=== PATIENT | male | born 1945 | race Caucasian/White ===

== ENCOUNTER 2024-07-13 13:35 | Emergency (ER) | payer OTHER ==
[~2024-07-13] VITALS: Ht 188 cm; Wt 86.4 kg
[2024-07-13] MEDS: LidoCAINE 2% Topical Jelly 11mL syringe (UROJET) TOP ONE (17:13)
[2024-07-13 17:24] LABS: BILIRUBIN,URINE NEGATIVE (Neg); CLARITY,URINE CLOUDY (Clear); COLOR,URINE YELLOW (Yellow); GLUCOSE, URINE >=1000 mg/dl (Neg); KETONES,URINE NEGATIVE (Neg); LEUKOCYTE ESTERASE ,URINE MODERATE (Neg); NITRITES, URINE POSITIVE (Neg); OCCULT BLOOD,URINE MODERATE (Neg); PROTEIN,URINE TRACE mg/dl (Neg); UROBILINOGEN,URINE 0.2 E.U/dL (0.2-1.0)
[2024-07-13 17:31] LABS: UA COLLECTION TYPE FOLEY CATH
[2024-07-13 17:35] LABS: BACTERIA,URINE 4+ /HPF (Neg); MUCUS STRANDS NONE SEEN /LPF (Neg); RENAL CELLS, URINE FEW /HPF; SQUAMOUS EPITHELIAL CELL,UR FEW /LPF (FEW); WBC CLUMPS,URINE MANY /HPF (NEGATIVE); WBC,URINE TNTC /HPF (0-4)
[2024-07-13] MEDS ORDERED: sulfamethoxazole/trimethoprim SS (400mg/80mg) tab (single-strength) PO SCH (17:50)
[2024-07-13] MEDS ORDERED: SULF1TAB48 PO (18:01)
[2024-07-13] MEDS: sulfamethoxazole/trimethoprim DS (800/160mg) tablet PO ONE (18:21)
[2024-07-13 18:28] VITALS: BP 113/65; PULSE 84; RESP 16; TEMP 98.2; O2SAT 99
[2024-07-13] MEDS: sulfamethoxazole/trimethoprim SS (400mg/80mg) tab (single-strength) PO ONE (18:28)
== END 2024-07-13 18:30 | disposition home or self-care (01) ==
LOC: ER 13:36
DX: N39.0 Urinary tract infection, site not specified (principal); N13.9 Obstructive and reflux uropathy, unspecified; Z88.8 Allergy status to other drugs, medicaments and biological substances
CPT/HCPCS: 51702; 81001; 87077; 87088; 87186; 99284; A4314

== ENCOUNTER 2024-08-30 06:47 | Inpatient (IN) | payer OTHER ==
[2024-08-23 16:03] LABS: BASOPHILS % (AUTO) 0.1 % (0-1); EOSINOPHILS # (AUTO) 0.2 X10'3 (0-0.9); EOSINOPHILS % (AUTO) 2.3 % (0-6); LYMPHOCYTES # (AUTO) 1.4 X10'3 (1.1-4.8); LYMPHOCYTES % (AUTO) 13.3 % (21-51); MEAN CORPUSCULAR HEMOGLOBIN 28.1 PG (27.0-31.0); MEAN CORPUSCULAR HGB CONC 32.3 g/dL (33.0-36.5); MEAN CORPUSCULAR VOLUME 87.1 FL (78-98); MONOCYTES # (AUTO) 0.8 X10'3 (0-0.9); MONOCYTES % (AUTO) 7.4 % (2-12); NEUTROPHILS # (AUTO) 8.3 X10'3 (1.8-7.7); NEUTROPHILS % (AUTO) 76.9 % (42-75); PRE OP HEMATOCRIT 37.8 % (42.0-52.0); PRE OP HEMOGLOBIN 12.2 g/dL (14.0-17.9); PRE OP PLATELET COUNT 205 X10'3 (140-440); PRE OP WHITE BLOOD COUNT 10.8 10'3 (4.8-10.8); RED BLOOD COUNT 4.34 X10'6 (4.70-6.10); RED CELL DISTRIBUTION WIDTH 14.4 % (11.5-14.5)
[2024-08-23 16:18] LABS: PRE OP INR 1.2 INR; PRE OP PROTIME 12.4 SECONDS (9.0-12.0)
[2024-08-23 16:27] LABS: BILIRUBIN,URINE NEGATIVE (Neg); CLARITY,URINE CLEAR (Clear); COLOR,URINE YELLOW (Yellow); GLUCOSE, URINE >=1000 mg/dl (Neg); KETONES,URINE TRACE mg/dl (Neg); LEUKOCYTE ESTERASE ,URINE NEGATIVE (Neg); NITRITES, URINE NEGATIVE (Neg); OCCULT BLOOD,URINE NEGATIVE (Neg); PH,URINE 5.5 (4.8-8.0); PROTEIN,URINE TRACE mg/dl (Neg); UROBILINOGEN,URINE 0.2 E.U/dL (0.2-1.0)
[2024-08-23 16:31] LABS: UA COLLECTION TYPE NON-SPECIFIED
[2024-08-23 16:33] LABS: BACTERIA,URINE NONE SEEN /HPF (Neg); RBC,URINE NONE SEEN /HPF (0-2); SQUAMOUS EPITHELIAL CELL,UR NONE SEEN /LPF (FEW); WBC,URINE 0-4 /HPF (0-4)
[2024-08-23 16:37] LABS: ALBUMIN 3.1 G/DL (3.4-5.0); ALBUMIN/GLOBULIN RATIO 0.8 (1.1-1.5); ALKALINE PHOSPHATASE 123 IU/L (46-116); BLOOD UREA NITROGEN 14 MG/DL (7-18); BUN/CREATININE RATIO 13.5 (10.0-20.0); CALCIUM 9.1 MG/DL (8.5-10.1); CHLORIDE 102 MMOL/L (99-107); CREATININE 1.04 MG/DL (0.60-1.10); PRE OP ALT 22 U/L (30-65); PRE OP ANION GAP 6 (8-16); PRE OP AST 18 U/L (10-37); PRE OP BILIRUB, TOTAL 0.6 MG/DL (0.0-1.0); PRE OP GLUCOSE 107 MG/DL (70-104); PRE OP POTASSIUM 4.1 MMOL/L (3.4-5.1); PRE OP SODIUM 136 MMOL/L (135-145); TOTAL CARBON DIOXIDE 27.8 MMOL/L (24-32); TOTAL PROTEIN 7.2 G/DL (6.4-8.2); eGFR 69 ML/MIN
[2024-08-30] VITALS (37 sets, daily range): BP systolic 82–162; BP diastolic 59–91; PULSE 81–123; RESP 12–22; TEMP 97.4–98.4; O2SAT 93–100
[~2024-08-30] VITALS: Ht 188 cm; Wt 86.1 kg
[2024-08-30] MEDS: ceFAZolin 2gm in dextrose, iso 50 ML IV ONE (05:30)
[~2024-08-30 06:47] MED LIST: ALBU2.5V10; APIX5TAB3 PO; BUDE8.435 BOTHNARES; CALC600T21 PO; DIGO125T97 PO; DILT180C76 PO; EMPA25TA; EZET10TA48 PO; FINA5TAB11 PO; FLO0.4C; FURO-150 PO; HYDR-3968 PO; MECL-302 PO; METO200T37 PO; MONT-40 PO; OMEP20CA16 PO; ROSU40TA89 PO; SACU1TAB7 PO; TIOT18CA3; ondansetron/PF 4mg/2ml inj IV PRN
[2024-08-30] MEDS ORDERED: ondansetron/PF 4mg/2ml inj IV PRN ×2 (07:15→09:30)
[2024-08-30] MEDS ORDERED: morphine 2 MG/ML inj. syringe IV PRN (07:15)
[2024-08-30] MEDS ORDERED: labetalol 20mg/4ml (5mg/ml) syringe IV PRN ×2 (07:15→09:30)
[2024-08-30] MEDS ORDERED: hydrALAZINE 20mg/ml inj. IV PRN ×2 (07:15→09:30)
[2024-08-30] MEDS ORDERED: morphine 4 MG/ML inj SYRINge IV PRN (07:15)
[2024-08-30] MEDS: famotidine 20mg tablet PO ONE (07:17)
[2024-08-30] MEDS: VANCOMYCIN/H2O 1.5g/300mL PB 300 ML IV ONE (07:17)
[2024-08-30] MEDS: ringers solution, lacted 1,000 ML IV SCH ×2 (07:18→11:30)
[2024-08-30] MEDS ORDERED: LIDOcaine 1% 30ml preserv. free vial ONE (08:22)
[2024-08-30] MEDS ORDERED: iohexol 350MG/ML 100ml bottle IV ONE (08:22)
[2024-08-30] MEDS ORDERED: sevoflurane 250ml liquid IH ONE (08:25)
[2024-08-30] MEDS ORDERED: heparin 1,000unit/ml 10ml vial 10 ML ONE ×2 (08:26→08:49)
[2024-08-30] MEDS ORDERED: rocuronium 10mg/ml inj IV ONE (08:26)
[2024-08-30] MEDS ORDERED: fentaNYL/PF 50MCG/1 ML 2ML syringe ONE (08:26)
[2024-08-30] MEDS ORDERED: midazolam 1 mg/ML 2ml injection ONE (08:26)
[2024-08-30] MEDS ORDERED: propofol inj 20 ML IV ONE (08:26)
[2024-08-30] MEDS ORDERED: ePHEDrine 50MG/ML INJ. ONE (08:45)
[2024-08-30] MEDS ORDERED: sugammadex 200mg/2ml injection IV ONE (08:46)
[2024-08-30] MEDS ORDERED: non-formulary drug (Hydrocodone Bit/Acetaminophen (Hydrocodon-Acetaminoph 7.5-325) 1 TAB) PO PRN (09:15)
[2024-08-30] MEDS ORDERED: potassium Cl 40MEQ/270ML bag 250 ML IV PRN (09:30)
[2024-08-30] MEDS ORDERED: potassium Cl 40MEQ/1/2NS 520ml 520 ML IV PRN (09:30)
[2024-08-30] MEDS ORDERED: magnesium sulf-water 2g/50mL 50 ML IV PRN (09:30)
[2024-08-30] MEDS ORDERED: magnesium sulf-water 4G/100mL 100 ML IV PRN (09:30)
[2024-08-30] MEDS ORDERED: acetaminophen 325mg tablet PO PRN (09:30)
[2024-08-30] MEDS ORDERED: potassium Cl 20mEq/100mL bag 100 ML IV PRN (09:30)
[2024-08-30] MEDS ORDERED: ALPRAZolam 0.25mg tablet PO PRN (09:30)
[2024-08-30] MEDS ORDERED: pantoprazole 40mg Tablet.DR PO PRN (09:30)
[2024-08-30] MEDS ORDERED: potassium Cl 20 mEq SR tablet PO PRN (09:30)
[2024-08-30] MEDS ORDERED: diphenhydrAMINE 25mg capsule PO PRN (09:30)
[2024-08-30] MEDS ORDERED: proCHLORperazine 10 MG/2 ml inj IV PRN (09:30)
[2024-08-30] MEDS ORDERED: potassium CL 10mEq/100ml bag 100 ML IV PRN (09:30)
[2024-08-30] MEDS ORDERED: HYDROcodone/acetaminophen 5mg/325mg tablet PO PRN (09:30)
[2024-08-30] MEDS: DOCUMENT DATE & TIME OF BETA-BLOCKER PO ONE (09:45)
[2024-08-30] MEDS: normal saline 1000ml 1,000 ML IV SCH (15:29)
[2024-08-30] MEDS: metoprolol succinate 25mg (24-HOUR) SR. Tablet PO ONE (15:30)
[2024-08-30] MEDS: ceFAZolin 1GM/D5W- ADD-VANTAGE 50 ML IV SCH (15:30)
[2024-08-30] MEDS: sod chloride 0.9% 10ml flush syringe IV SCH (15:37)
[2024-08-30] MEDS ORDERED: non-formulary drug (Metoprolol Succinate 0.5 TAB) PO SCH (20:00)
[2024-08-30] MEDS: albuterol 2.5 MG/3 ML nebule NEB PRN (22:37)
[2024-08-31] MEDS: calcium carbonate 500mg tablet PO SCH (01:03)
[2024-08-31] MEDS: docusate sod 100mg capsule PO PRN (01:03)
[2024-08-31] MEDS: EMPAGLIFLOZIN 25 MG TABLET PO SCH (01:03)
[2024-08-31 02:00] VITALS: BP 144/85; PULSE 105; RESP 18; TEMP 97.6; O2SAT 96
[2024-08-31] MEDS: vancomycin inj 1,000 MG in normal saline 250ml IV soln 250 ML IV SCH (02:11)
[2024-08-31 07:00] VITALS: BP 139/89; PULSE 109; RESP 18; TEMP 97.4; O2SAT 94
[2024-08-31 07:01] LABS: BASOPHILS % (AUTO) 0.4 % (0-1); EOSINOPHILS # (AUTO) 0.2 X10'3 (0-0.9); EOSINOPHILS % (AUTO) 1.5 % (0-6); HEMATOCRIT 39.4 % (42.0-52.0); HEMOGLOBIN 13.2 g/dl (14.0-17.9); LYMPHOCYTES # (AUTO) 1.6 X10'3 (1.1-4.8); LYMPHOCYTES % (AUTO) 12.6 % (21-51); MEAN CORPUSCULAR HEMOGLOBIN 28.8 PG (27.0-31.0); MEAN CORPUSCULAR HGB CONC 33.5 g/dL (33.0-36.5); MEAN CORPUSCULAR VOLUME 85.9 FL (78-98); MEAN PLATELET VOLUME 7.4 FL (7.4-10.4); MONOCYTES # (AUTO) 0.5 X10'3 (0-0.9); MONOCYTES % (AUTO) 4.3 % (2-12); NEUTROPHILS # (AUTO) 10.3 X10'3 (1.8-7.7); NEUTROPHILS % (AUTO) 81.2 % (42-75); PLATELET COUNT 276 X10'3 (140-440); RED BLOOD COUNT 4.59 X10'6 (4.70-6.10); WHITE BLOOD COUNT 12.7 X10'3 (4.5-11.0)
[2024-08-31 07:06] LABS: INR 1.1 INR; PROTHROMBIN TIME 11.7 SECONDS (9.0-12.0)
[2024-08-31 07:32] LABS: ALANINE AMINOTRANSFERASE 27 U/L (12-78); ALBUMIN 3.1 G/DL (3.4-5.0); ALBUMIN/GLOBULIN RATIO 0.7 (1.1-1.5); ALKALINE PHOSPHATASE 148 IU/L (46-116); ANION GAP 6 (8-16); ASPARTATE AMINO TRANSFERASE 27 U/L (10-37); BILIRUBIN,TOTAL 0.5 MG/DL (0.1-1.0); BLOOD UREA NITROGEN 12 MG/DL (7-18); BUN/CREATININE RATIO 12.4 (10.0-20.0); CALCIUM 9.4 MG/DL (8.5-10.1); CHLORIDE 104 MMOL/L (99-107); CREATININE 0.97 MG/DL (0.60-1.10); GLUCOSE 89 MG/DL (70-104); MAGNESIUM 1.7 MG/DL (1.5-2.4); POTASSIUM 4.6 MMOL/L (3.5-5.1); PRO BRAIN NATRIURETIC PEPTIDE 2017 PG/ML (0-450); SODIUM 138 MMOL/L (135-145); TOTAL CARBON DIOXIDE 28.2 MMOL/L (24-32); TOTAL PROTEIN 7.5 G/DL (6.4-8.2); eCRCL 75 ML/MIN; eGFR 75 ML/MIN
[2024-08-31] MEDS: meclizine 12.5mg tablet PO SCH (07:32)
[2024-08-31] MEDS: diltiazem CD 180mg cap (once-daily) PO SCH (07:32)
[2024-08-31] MEDS: apixaban 5mg tablet PO SCH (07:32)
[2024-08-31] MEDS: tamsulosin 0.4mg capsule PO SCH (07:33)
[2024-08-31] MEDS: atorvastatin 20mg tablet PO SCH (07:33)
[2024-08-31] MEDS: digoxin 125mcg (0.125mg) tablet PO SCH (07:33)
[2024-08-31] MEDS: montelukast 10mg tablet PO SCH (07:33)
[2024-08-31] MEDS: ezetimibe 10mg tablet PO SCH (07:34)
[2024-08-31] MEDS: metoprolol succinate 25mg (24-HOUR) SR. Tablet PO SCH (07:34)
[2024-08-31] MEDS: fluticasone nasal spray 16GM bottle NS SCH (07:36)
[2024-08-31] MEDS ORDERED: non-formulary drug (Omeprazole 1 CAP) PO SCH (08:00)
[2024-08-31] MEDS: ipratropium 0.5 MG/2.5ML nebule NEB SCH (08:11)
[2024-08-31 08:30] VITALS: PULSE 105; RESP 18
[2024-08-31 08:45] VITALS: PULSE 104; RESP 15
[2024-08-31] MEDS: finasteride 5mg tablet PO SCH (09:21)
[2024-08-31] MEDS: sacubitril/valsartan 49mg-51mg tablet PO SCH (09:21)
[2024-08-31] MEDS ORDERED: APIX5TAB3 PO (09:51)
[2024-08-31] MEDS ORDERED: METO100T7 PO (10:04)
[2024-08-31] MEDS: metoprolol succinate 25mg (24-HOUR) SR. Tablet PO ONE (11:23)
[2024-08-31 11:28] VITALS: BP 151/99; PULSE 106
== END 2024-08-31 12:38 | disposition home or self-care (01) | DRG 273 ==
LOC: PAS IN 06:47 → PCU 3S 09:27
PROVIDERS: ADMIT Student in an Organized Health Care Education/Training Program; ATTEND Student in an Organized Health Care Education/Training Program
PROC: B24BZZ4 Ultrasonography of Heart with Aorta, Transesophageal (ICD-10-PCS; 2024-08-30)
PROC: 02L73DK Occlusion of Left Atrial Appendage with Intraluminal Device, Percutaneous Approach (ICD-10-PCS; principal; 2024-08-30 08:25)
DX: I48.91 Unspecified atrial fibrillation (principal); Z00.6 Encounter for examination for normal comparison and control in clinical research program; I50.23 Acute on chronic systolic (congestive) heart failure; I25.10 Atherosclerotic heart disease of native coronary artery without angina pectoris; E78.5 Hyperlipidemia, unspecified; I49.3 Ventricular premature depolarization; Z86.73 Personal history of transient ischemic attack (TIA), and cerebral infarction without residual deficits; Z79.899 Other long term (current) drug therapy; Z87.891 Personal history of nicotine dependence; Z95.5 Presence of coronary angioplasty implant and graft
CPT/HCPCS: 33340; 36415; 71045; 71046; 76937; 80053; 81001; 82948; 83735; 83880; 85025; 85347; 85610; 85730; 86885; 86900; 86901; 86920; 87081; 93005; 93308; 93312; 93325; 94640; 94760; A4314; A4618; A6258; A6449; C1760; C1889; C1893; G0378; J0690; J1100; J1644; J2003; J2250; J2405; J2704; J3010; J3370; J3372; J3490; J7030; J7040; J7050; J7120; J8597; Q9967

== ENCOUNTER 2024-10-16 11:38 | Day surgery (SDC) | payer OTHER ==
[~2024-10-16] VITALS: Ht 188 cm; Wt 85.9 kg
[2024-10-16] VITALS (14 sets, daily range): BP systolic 102–137; BP diastolic 48–85; PULSE 66–87; RESP 15–24; TEMP 97.9; O2SAT 91–97
[~2024-10-16 11:38] MED LIST changes: -METO200T37 PO; -ondansetron/PF 4mg/2ml inj IV PRN
[2024-10-16 12:23] LABS: BASOPHILS % (AUTO) 0.1 % (0-1); EOSINOPHILS # (AUTO) 0.1 X10'3 (0-0.9); HEMATOCRIT 38.6 % (42.0-52.0); HEMOGLOBIN 12.9 g/dl (14.0-17.9); LYMPHOCYTES # (AUTO) 2.1 X10'3 (1.1-4.8); LYMPHOCYTES % (AUTO) 22.4 % (21-51); MEAN CORPUSCULAR HEMOGLOBIN 28.4 PG (27.0-31.0); MEAN CORPUSCULAR HGB CONC 33.4 g/dL (33.0-36.5); MEAN CORPUSCULAR VOLUME 84.9 FL (78-98); MEAN PLATELET VOLUME 7.5 FL (7.4-10.4); MONOCYTES # (AUTO) 0.6 X10'3 (0-0.9); MONOCYTES % (AUTO) 6.4 % (2-12); NEUTROPHILS # (AUTO) 6.5 X10'3 (1.8-7.7); NEUTROPHILS % (AUTO) 70.1 % (42-75); PLATELET COUNT 225 X10'3 (140-440); RED BLOOD COUNT 4.55 X10'6 (4.70-6.10); RED CELL DISTRIBUTION WIDTH 14.6 % (11.5-14.5); WHITE BLOOD COUNT 9.3 X10'3 (4.5-11.0)
[2024-10-16] MEDS ORDERED: APIX5TAB3 PO (12:41)
[2024-10-16] MEDS ORDERED: METO200T37 PO (12:41)
[2024-10-16 12:42] LABS: ALBUMIN 3.3 G/DL (3.4-5.0); ANION GAP 8 (8-16); BLOOD UREA NITROGEN 17 MG/DL (7-18); BUN/CREATININE RATIO 19.5 (10.0-20.0); CALCIUM 8.9 MG/DL (8.5-10.1); CHLORIDE 104 MMOL/L (99-107); CREATININE 0.87 MG/DL (0.60-1.10); POTASSIUM 3.9 MMOL/L (3.5-5.1); SODIUM 139 MMOL/L (135-145); TOTAL CARBON DIOXIDE 26.8 MMOL/L (24-32); eCRCL 84 ML/MIN; eGFR 85 ML/MIN
[2024-10-16 12:46] LABS: APTT 28 SECONDS (22-32); INR 1.1 INR; PROTHROMBIN TIME 11.4 SECONDS (9.0-12.0)
[2024-10-16] MEDS: MIDAZolam 1mg/ml 10ml vial IV ONE (12:48)
[2024-10-16] MEDS: normal saline 1000ml 1,000 ML IV SCH (12:48)
[2024-10-16] MEDS: fentaNYL/PF 50MCG/1 ML 2ML syringe IV ONE (12:48)
[2024-10-16 12:54] LABS: GLUCOSE 96 MG/DL (70-104)
== END 2024-10-16 14:30 | disposition home or self-care (01) ==
LOC: SSTAY O 11:38
PROVIDERS: ATTEND Student in an Organized Health Care Education/Training Program
DX: I48.91 Unspecified atrial fibrillation (principal); E78.5 Hyperlipidemia, unspecified; I25.10 Atherosclerotic heart disease of native coronary artery without angina pectoris; I50.9 Heart failure, unspecified; Z86.73 Personal history of transient ischemic attack (TIA), and cerebral infarction without residual deficits; Z79.899 Other long term (current) drug therapy
CPT/HCPCS: 36415; 80048; 85025; 85610; 85730; 93312; 93325; J2250; J3010; J7030; A4620